=== PATIENT | female | born 1950 | race Caucasian/White ===

== ENCOUNTER 2018-12-05 05:50 | Day surgery (SDC) | payer MEDICARE, OTHER ==
[~2018-12-05] VITALS: Ht 162.6 cm; Wt 89.8 kg
[~2018-12-05 05:50] MED LIST: COLACE50 MG PO; COZAAR25 MG PO; DOXEPIN HCL75 MG PO; FLONASE ALLERG9.9 ML NS; FOSAMAX70 MG PO; GABAPENTIN100 MG PO; LEVOTHYROXINE100 MCG PO; LIPITOR80 MG PO; LISINOPRIL20 MG PO; MAGNESIUM400 MG PO; MULTIVITAMINS1 EAC7 PO; NEURONTIN300 MG PO; NEVANAC3 ML OPTH; NORCO 10-325 T1 EACH PO; NORCO 5-325 TA1 EACH PO; NORCO 7.5-3251 EACH PO; PREDNISOLON5 MG/5 M1 PO; REFRESH CLASSI1 EACH OPTH; SHARK CARTILAG750 MG PO; TEGRETOL200 MG PO; TRAMADOL HCL50 MG PO; TRICOR145 MG PO; ULTRAM ER100 MG PO; VITAMIN D310000 UNIT PO; ZYMAXID2.5 ML OPTH
--- NOTE | 2018-12-05 08:58 | NUR ---
12/05/18 0858 Sonia Miles 0817 PATIENT ARRIVES TO PACU UNRESPONSIVE TO VERBAL STIMULI. RESP EVEN AND UNLABORED, MASK AT 6 LITERS.
[2018-12-05] MEDS ORDERED: TYLENOL325 MG PO (09:27)
[2018-12-05] MEDS ORDERED: OXYCODON-ACETA1 EAC2 PO (09:28)
--- NOTE | 2018-12-05 09:42 | NUR ---
PT ARRIVES TO DS RM 5 FROM PACU AWAKE, A&O X3. PT DENIES ANY NAUSEA OR PAIN. PT RESP EVEN AND UNLABORED, ON 2L O2 VIA NC. SATS ABOVE 94%. PT HAS APPLE JUICE IN HAND ON ARRIVAL, TOLERATES PO WELL. PT PROVIDED ICED WATER AND CRACKERS. CALL LIGHT WITHIN REACH, SCD'S IN PLACE.
[2018-12-05] MEDS ORDERED: PERCOCET 7.5-31 EACH PO (10:19)
--- NOTE | 2018-12-05 10:39 | NUR ---
PT RESTING IN BED CONVERSING WITH DAUGHTER AT BEDSIDE. PT CONT TO DENY PAIN OR NAUSEA. PT O2 REMOVED AND PT ABLE TO KEEP SATS ABOVE 94%. CONT PULSE OX LEFT IN PLACE. PT TOLERATES PO WELL. PT ENCOURAGED TO USE CALL LIGHT WITH URGE TO VOID.
--- NOTE | 2018-12-05 11:44 | NUR ---
PT USES CALL LIGHT TO ALERT RN OF URGE TO VOID. PT SITS AT SIDE OF BED PRIOR TO STANDING, DENIES NAUSEA BUT STATES SOME DIZZINESS. PT AMBULATES TO WITH RN AND DAUGHTER ASSISTANCE. PT ABLE TO VOID 300 MLS YELLOW URINE WITH NO PROBLEM. BACK TO PT ROOM, PROVIDED JEMICHAELO. CALL LIGHT WITHIN REACH.
--- NOTE | 2018-12-05 14:45 | NUR ---
[id number]: PT CONT TO REST IN BED AND CONVERSE WITH DAUGHTER AT BEDSIDE. PT DENIES ANY PAIN IN ABD AND TOLERATES PO WELL WITH NO NAUSEA. HOME PRESCRIPTION GIVEN TO DAUGHTER TO FILL PRIOR TO DC HOME. 1345: PT DAUGHTER BACK TO FROM PHARMACY. PT UP TO BATHROOM WITH RN AND DAUGHTER ASSIST. PT BACK TO ROOM AND GETS DRESSED WITH DAUGHTER'S HELP. DC INSTRUCTIONS GIVEN IN PRESENCE OF PT AND DAUGHTER, ALL QUESTIONS ADDRESSED. 1420: PT DC'S VIA WC TO PERSONAL VEHICLE AT HOSPITAL ENTRANCE TO HOME.
--- NOTE | 2018-12-05 15:36 | OR ---
[facility] [address], [place] [address] Signed DATE OF OPERATION: 12/05/2018 SURGEON: Marlene Hussein MD PREOPERATIVE DIAGNOSIS: Incarcerated right-sided spigelian hernia. POSTOPERATIVE DIAGNOSIS: Incarcerated right-sided spigelian hernia (omentum incarcerated viscus). PROCEDURES PERFORMED: 1. Repair of right-sided spigelian hernia. 2. Implantation of Prolene mesh underlay technique. 3. Excision of incarcerated portion of omentum. ANESTHESIA: General endotracheal; Nohemi Puma, [employer]AK[employer] M[employer] OPERATOR; and local 20 mL of 0.25% Marcaine with epinephrine. INDICATION: This 68-year-old white woman is a patient of Dr. Jesús Bosch, and Dr. Jazmyne Loco. She is noted to have a somewhat painful mass in the right side of her abdomen. This is in the right lower abdomen dominantly. CT scan in the past confirmed a soft tissue mass in subcutaneous space as a possible spigelian hernia. Repeat CT scan recently confirmed this as well. Her most recent CT scan was obtained to assess for uterine fibroids. The hernia defect measured nearly 2 cm and has been present since at least September of 2012. She is admitted at this time to undergo repair of the apparently incarcerated spigelian hernia. The risks of bleeding, infection, recurrence, and other unforeseen complications was reviewed in detail. She understands and wished to proceed. FINDINGS: Indeed herniated omentum from the abdominal cavity was noted within the hernia sac. It was clearly a spigelian type hernia just lateral to the rectus abdominis. Repair included excision of portion of omentum, closure of the hernia sac, development of the properitoneal space with implantation of Prolene mesh and reapproximation of muscle and fascial layers over the repair. DESCRIPTION OF PROCEDURE: The patient was brought to the operating room and given a general endotracheal Electronically Signed By: MARLENE HUSSEIN MD 12/05/18 1536 PATIENT NAME: DORENE MORELOS OPERATIVE REPORT DATE OF : 50 REPORT #: [id number] PHYSICIAN: MARLENE HUSSEIN MD PCP: JESÚS BOSCH MD REPORT IS CONFIDENTIAL AND NOT TO BE RELEASED WITHOUT AUTHORIZATION [facility] [address], [place] [address] scan preoperatively obtained was reviewed confirming the finding of a fascial defect along the right rectus muscle. The palpable abnormality had been marked in the preoperative area. After satisfactory general endotracheal anesthesia, the abdomen was prepared with chlorhexidine solution and draped sterilely. Preoperative antibiotic Ancef was given. Sequential compression device stockings were used. Over the palpable nonreducible mass of the right lower abdomen, a transverse incision was made and dissection carried through the thick abdominal wall pannus. Distended and attenuated external oblique fascia was incised revealing the underlying herniated soft tissue, which was bluntly dissected free. It was insinuated between internal oblique muscle, which was , ultimately identifying well the neck of the hernia sac, which measured about 2 cm. The amount of herniated fatty tissue was quite a bit larger, probably 8 cm in diameter. With various maneuvers, the fascial edges were freed. There was no possible way to allow for reduction of the herniated fat and the hernia sac was thus incised revealing herniated omentum. This was divided transversely in the vascular pedicle secured with Vicryl tie. The omentum was then freed from the hernia sac and replaced to the intraabdominal cavity. The hernia sac was oversewn with 2-0 Vicryl suture. The properitoneal space was then developed bluntly, circumferentially, and when a generous space was developed at least 5 cm circumferentially, a segment of Prolene mesh was cut to circular configuration and secured in the properitoneal space. This was secured with interrupted 0 Prolene sutures. The internal oblique muscles were reapproximated with interrupted 0 Prolene as was the external oblique after application of 20 mL of 0.25% Marcaine with epinephrine. Irrigation was undertaken. Em's layer was reapproximated with interrupted 2-0 Vicryl, and skin closed with running subcuticular 3-0 Vicryl. Steri-Strips were applied. Mepilex silver sponge dressing was applied as was an OpSite. The patient tolerated the procedure well, was ultimately extubated and transferred to recovery in good condition having suffered no complications. Sponge, needle, and instrument count reported as correct x3. MD CHACORAT Benítez/MODL /[id number] cc: MD Jesús Cervantes MD Electronically Signed By: MARLENE HUSSEIN MD 12/05/18 1536 PATIENT NAME: DORENE MORELOS OPERATIVE REPORT DATE OF : 50 REPORT #: [id number] PHYSICIAN: MARLENE HUSSEIN MD PCP: JESÚS BOSCH MD REPORT IS CONFIDENTIAL AND NOT TO BE RELEASED WITHOUT AUTHORIZATION [facility] [address] [facility] [place], [place] [address] Signed Copies: JAZMYNE LOCO MD, MALCOLM MD ~ Electronically Signed By: MARLENE HUSSEIN MD 12/05/18 1536 PATIENT NAME: DORENE MORELOS OPERATIVE REPORT DATE OF : 50 REPORT #: [id number] PHYSICIAN: MARLENE HUSSEIN MD PCP: JESÚS BOSCH MD REPORT IS CONFIDENTIAL AND NOT TO BE RELEASED WITHOUT AUTHORIZATION
== END 2018-12-05 14:25 | disposition home or self-care (01) ==
LOC: DS 05:50
PROVIDERS: Surgery
PROC: 0WUF0JZ Supplement Abdominal Wall with Synthetic Substitute, Open Approach (ICD-10-PCS; principal; 2018-12-05 06:45)
DX: K43.6 Other and unspecified ventral hernia with obstruction, without gangrene (principal); I10 Essential (primary) hypertension; E03.9 Hypothyroidism, unspecified; N28.9 Disorder of kidney and ureter, unspecified; G35 Multiple sclerosis; Z88.1 Allergy status to other antibiotic agents; Z79.899 Other long term (current) drug therapy
CPT/HCPCS: 00750; C1781; J0131; J0330; J0690; J1100; J1644; J1885; J2250; J2704; J3475; J7120